=== PATIENT | male | born 1970 | race Caucasian/White ===

== ENCOUNTER 2018-03-12 10:18 | Inpatient (IN) | payer OTHER ==
[~2018-03-12] VITALS: Ht 172.7 cm; Wt 103.5 kg
[2018-03-12] MEDS: PANTOPRAZOLE 40MG TAB (PROTONIX) PO SCH (09:00)
[2018-03-12 10:52] LABS: VENOUS BASE EXCESS 0.9 (-2.0-2.0); VENOUS HCO3 29.3 MEQ/L (23.0-27.0); VENOUS PARTIAL PRESSURE O2 31.4 mmHg (30.0-50.0); VENOUS PH 7.299 UNITS (7.330-7.430); VENOUS STANDARD HCO3 23.8 MEQ/L; VENOUS TOTAL CO2 31.1 MEQ/L (24.0-28.0)
[2018-03-12 10:58] LABS: BASO # 0.1 10^3/uL (0.0-0.2); BASO % 0.6 % (0.0-1.0); EOS # 0.3 10^3/uL (0.0-0.50); EOS % 2.5 % (0.0-3.0); HEMATOCRIT 50.5 % (42.0-52.0); HEMOGLOBIN 16.7 g/dl (13.5-17.5); LYMPH # 2.9 10^3/uL (1.5-4.5); LYMPH % 23.3 % (24.0-44.0); MEAN CORPUSCULAR HEMOGLOBIN 32.1 pg (27.0-33.0); MEAN CORPUSCULAR HGB CONC 33.1 g/dl (32.0-36.5); MEAN CORPUSCULAR VOLUME 96.9 fl (80.0-96.0); MONO # 0.7 10^3/uL (0.0-0.8); MONO % 5.2 % (0.0-5.0); NEUTROPHILS # 8.6 10^3/uL (1.8-7.7); NEUTROPHILS % 67.8 % (36.0-66.0); PLATELET COUNT, AUTOMATED 236 10^3/uL (150-450); RED BLOOD COUNT 5.21 10^6/uL (4.30-6.10); WHITE BLOOD COUNT 12.6 10^3/uL (4.0-10.0)
[2018-03-12] MEDS ORDERED: FUROSEMIDE 40 MG/4 ML VIAL (J1940) IV ONE (11:00)
[2018-03-12] MEDS ORDERED: methylPREDNISolone INJ 40 MG/1 ML VIAL (J2920) IV ONE (11:00)
[2018-03-12] MEDS ORDERED: ALBUTEROL SULFATE 2.5 MG/0.5 ML INH NEB SOLN INH ONE (11:00)
[2018-03-12] MEDS ORDERED: IPRATROPIUM 0.5MG/ALBUTEROL 2.5MG INH SOL UD 3ML (DUONEB)(J7620) NEB ONE (11:00)
--- NOTE | 2018-03-12 11:03 | REP ---
Clinical: Cough and dyspnea . Comparison: 06/12/2008 . Findings: The mediastinum and cardiac silhouette are stable and within normal limits for portable technique. The lung mcgill are clear without acute consolidation, effusion, or pneumothorax. Skeletal structures are intact. Impression: No focal consolidation. Coarsened interstitial markings may reflect bronchitis. Electronically Signed by Eric Valencia MD 03/12/2018 10:55 A
[2018-03-12 11:22] LABS: ABG BASE EXCESS 3.8 (-2.0-2.0); ABG HCO3 26.9 MEQ/L (22.0-26.0); ABG O2 SATURATION 94.2 % (95.0-99.0); ABG PARTIAL PRESSURE O2 68.6 mmHg (75.0-100.0); ABG STANDARD HCO3 27.7 MEQ/L (22.0-26.0); ABG pH (ARTERIAL) 7.491 UNITS (7.350-7.450)
[2018-03-12] MEDS ORDERED: LABETALOL HCL 100 MG/20 ML VIAL IV STA (11:41)
[2018-03-12 12:40] LABS: ALBUMIN 3.6 GM/DL (3.2-5.2); ALT/SGPT 54 U/L (12-78); BILIRUBIN,DIRECT 0.2 MG/DL (0.0-0.2); BILIRUBIN,TOTAL 0.8 MG/DL (0.2-1.0); BLOOD UREA NITROGEN 8 MG/DL (7-18); CALCIUM LEVEL 8.9 MG/DL (8.5-10.1); CARBON DIOXIDE LEVEL 28 MEQ/L (21-32); CHLORIDE LEVEL 102 MEQ/L (98-107); CPK CREATINE PHOSPHOKINASE 107 U/L (39-308); CREATININE FOR GFR 0.93 MG/DL (0.70-1.30); GLOMERULAR FILTRATION RATE > 60.0 (>60); GLUCOSE, FASTING 132 MG/DL (70-100); MB/CK RELATIVE INDEX 3.18 (< OR =4); NT-PRO BNP 1934 PG/ML (<125); POTASSIUM SERUM 4.8 MEQ/L (3.5-5.1); SODIUM LEVEL 141 MEQ/L (136-145); THYROXINE (T4) 10.5 UG/DL (4.5-12.0); TOTAL PROTEIN 7.7 GM/DL (6.4-8.2); TROPONIN I 0.04 NG/ML (< 0.10)
[2018-03-12 12:51] LABS: INFLUENZA A AMPLIFICATION NEGATIVE (NEGATIVE); INFLUENZA B AMPLIFICATION NEGATIVE (NEGATIVE)
[2018-03-12] MEDS ORDERED: LABETALOL 200 MG TAB PO ONE (13:00)
--- NOTE | 2018-03-12 13:38 | HPEPDOC ---
[facility] Medical History & Physical Date of Admission Mar 12, 2018 Attending Physician: FERNY KELLER MD History and Physical CHIEF COMPLAINT: Shortness of breath 3 day HISTORY OF PRESENT ILLNESS: Patient is a 47-year-old man with poorly controlled hypertension was formerly a patient of Dr. Edwardo Baer but was lost to follow- up. He also reports self discontinuation of his blood pressure medications over the past 3 years. He says he was in his usual state of health but has since found it difficult to catch his breath for the past 3 days his symptoms worsened today, necessitating his seeking further medical attention. He denies any palpitations, chest pain. He does give chronic occasional cough which she attributes to smoker's cough patient is a current smoker, a pack a day of cigarettes for the past 20 years. He denies nausea, vomiting, chills or fevers. He denies any change in his bowel or urinary habits. He denies any night sweats. No recent weight loss. No recent long distance travel. No recent lower extremity swellings. Patient was evaluated in the emergency room with a systolic blood pressure of 240 and diastolic of 120, respiratory rate was 20s chest x-ray with encephalization, which is in keeping with pulmonary edema. Patient's symptoms improved after IV Lasix was given. Hospitalist was called in to evaluate patient and the possibility of admission. PAST MEDICAL HISTORY: 1. Hypertension. PAST SURGICAL HISTORY: None. SOCIAL HISTORY: Current smoker, a pack a day for the past 20 years. Occasional use of alcohol, denies illicit drug use. 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 FAMILY HISTORY: Patient is adopted ALLERGIES: Please see below. REVIEW OF SYSTEMS: 12 point review of systems negative other than that described in the body of HPI. HOME MEDICATIONS: Please see below. PHYSICAL EXAMINATION: GENERAL APPEARANCE: Middle aged man, lying calmly in bed, not in any apparent distress. He is not pale, anicteric and afebrile HEENT: Atraumatic. Neck: Supple. LUNGS: soft basal crackles on auscultation bilaterally. CARDIOVASCULAR: S1 and 2 heard, no murmurs, rubs or gallops. ABDOMEN: Obese, soft, not tender, not distended. Bowel sounds normoactive. MUSCULOSKELETAL: Apparently within normal limits EXTREMITIES: No pedal edema, 2+ bilateral pedal pulses noted. NEUROLOGICAL: Awake, alert, oriented 3. PSYCHIATRIC: Normal affect LABORATORY DATA: See below. IMAGING: Chest x-ray: Reported as chronic changes but might take encephalization that is consistent with pulmonary edema. MICROBIOLOGY: Please see below. ASSESSMENT: 47 M with poorly controlled BP, off meds for 3 years (non compliant). c/o SOB which responded to Lasix and not to nebs. CXR with arguable encephalization consistent with pulmonary edema. Pt with no PCP. DIAGNOSES: 1. Hypertensive emergency. 2. Noncompliant with medications. 3. Noncompliant with treatment . PLAN: 1. We will admit patient to medical floor with remote telemetry under care of Dr. Fortune. 2. Hypertensive emergency: Labetalol 200 mg every 6 hours by mouth, hydralazine 10 mg every 4 hours IV, hold if systolic BP is less than 150. Patient will get 1 more shot of Lasix 40 mg in the morning tomorrow. Patient will have echocardiogram with this admission. 3. Noncompliant with medication and treatment. Extensive time spent on counseling patient on being compliant with both medication and treatment. 4. Current smoker. Patient counseled extensively on cessation of smoking for more than 10 minutes. We will order nicotine patch. 5. DVT prophylaxis, TEDs. 6. GI prophylaxis not indicated at this time. 7. Further management to be per patient's clinical course. Vital Signs Vital Signs Date Time Temp Pulse Resp B/P (MAP) Pulse Ox O2 Delivery O2 Flow Rate FiO2 03/12/18 13:08 95 174/103 03/12/18 11:30 93 03/12/18 10:18 95.2 18 Room Air Laboratory Data Labs 24H Laboratory Tests 2 03/12/18 10:45: Immature Granulocyte % (Auto) 0.6, White Blood Count 12.6H, Red Blood Count 5.21, Hemoglobin 16.7, Hematocrit 50.5, Mean Corpuscular Volume 96.9H, Mean Corpuscular Hemoglobin 32.1, Mean Corpuscular Hemoglobin Concent 33.1, Red Cell Distribution Width 13.0, Platelet Count 236, Neutrophils (%) (Auto) 67.8H, Lymphocytes (%) (Auto) 23.3L, Monocytes (%) (Auto) 5.2H, Eosinophils (%) (Auto) 2.5, Basophils (%) (Auto) 0.6, Neutrophils # (Auto) 8.6H, Lymphocytes # (Auto) 2.9, Monocytes # (Auto) 0.7, Eosinophils # (Auto) 0.3, Basophils # (Auto) 0.1, Nucleated Red Blood Cells % (auto) 0.0, Blood Gas Bicarbonate Standard 23.8, Venous Blood pH 7.299L, Venous Blood Partial Pressure CO2 61.0H, Venous Blood Partial Pressure O2 31.4, Venous Blood Total Carbon Dioxide 31.1H, Venous Blood HCO3 29.3H, Venous Blood Oxygen Saturation 51.0L, Venous Blood Base Excess 0.9, Lactic Acid Level 3.1*H 03/12/18 11:05: Influenza Type A (RT-PCR) NEGATIVE, Influenza Type B (RT-PCR) NEGATIVE 03/12/18 11:18: Blood Gas Bicarbonate Standard 27.7H, Arterial Blood pH 7.491H, Arterial Blood Partial Pressure CO2 36.0, Arterial Blood Partial Pressure O2 68.6L, Arterial Blood Total CO2 28.0, Arterial Blood HCO3 26.9H, Arterial Blood Base Excess 3.8H, Arterial Blood Oxygen Saturation 94.2L 03/12/18 11:46: Anion Gap 11, Glomerular Filtration Rate > 60.0, Calcium Level 8.9, Aspartate Amino Transf (AST/SGOT) 41H, Alanine Aminotransferase (ALT/SGPT) 54, Alkaline Phosphatase 91, Total Bilirubin 0.8, Direct Bilirubin 0.2, Total Creatine Kinase 107, Creatine Kinase MB 3.0, Creatine Kinase MB Relative Index 3.18, Troponin I 0.04, MT-Psh-R-Type Natriuretic Peptide 1934H, Total Protein 7.7, Albumin 3.6, Albumin/Globulin Ratio 0.88L, Thyroid Stimulating Hormone (TSH) 1.620, Thyroxine (T4) 10.5 CBC/BMP Laboratory Tests 03/12/18 10:45 Red Blood Count 5.21, Mean Corpuscular Volume 96.9 H, Mean Corpuscular Hemoglobin 32.1, Mean Corpuscular Hemoglobin Concent 33.1, Red Cell Distribution Width 13.0, Neutrophils (%) (Auto) 67.8 H, Lymphocytes (%) (Auto) 23.3 L, Monocytes (%) (Auto) 5.2 H, Eosinophils (%) (Auto) 2.5, Basophils (%) (Auto) 0.6, Neutrophils # (Auto) 8.6 H, Lymphocytes # (Auto) 2.9, Monocytes # (Auto) 0.7, Eosinophils # (Auto) 0.3, Basophils # (Auto) 0.1 03/12/18 11:46 Microbiology Microbiology 03/12/18 Blood Culture, Received Pending 03/12/18 Blood Culture, Received Pending Home Medications No Active Prescriptions or Reported Meds Allergies Coded Allergies: No Known Allergies (Unverified , 03/12/18) FERNY KELLER MD Mar 12, 2018 13:38
[2018-03-12] MEDS: hydrALAZINE INJ 20 MG/ML VIAL IV SCH ×3 (14:43→21:56)
[2018-03-12] MEDS: NICOTINE 21MG/24HR 1 EA TRANSDERMAL TD SCH (15:00)
[2018-03-12] MEDS: LABETALOL 200 MG TAB PO SCH ×2 (17:10→20:59)
[2018-03-12 17:24] VITALS: BP 172/100
[2018-03-12 18:39] VITALS: BP 162/72
--- NOTE | 2018-03-12 19:30 | ECGEPIP ---
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
[2018-03-12 20:00] VITALS: BP 142/80
[2018-03-13] VITALS (9 sets, daily range): BP systolic 133–173; BP diastolic 62–90
[2018-03-13] MEDS: LevoFLOXacin IV 750 MG in APPROPRIATE DILUENT 1 EA IV SCH (00:04)
[2018-03-13] MEDS: ACETAMINOPHEN TAB 650MG DOSE (2X325MG) PO PRN (00:04)
[2018-03-13] MEDS: NS 1,000 ML IV SCH ×3 (00:04→18:25)
[2018-03-13] MEDS: IPRATROPIUM 0.5MG/ALBUTEROL 2.5MG INH SOL UD 3ML (DUONEB)(J7620) NEB PRN (00:18)
[2018-03-13] MEDS: hydrALAZINE INJ 20 MG/ML VIAL IV SCH ×6 (01:46→21:13)
[2018-03-13 06:11] LABS: BLOOD UREA NITROGEN 19 MG/DL (7-18); CALCIUM LEVEL 8.3 MG/DL (8.5-10.1); CARBON DIOXIDE LEVEL 25 MEQ/L (21-32); CHLORIDE LEVEL 102 MEQ/L (98-107); CREATININE FOR GFR 0.91 MG/DL (0.70-1.30); GLOMERULAR FILTRATION RATE > 60.0 (>60); GLUCOSE, FASTING 121 MG/DL (70-100); SODIUM LEVEL 137 MEQ/L (136-145)
[2018-03-13] MEDS: IPRATROPIUM 0.5MG/ALBUTEROL 2.5MG INH SOL UD 3ML (DUONEB)(J7620) NEB SCH ×3 (07:17→15:33)
[2018-03-13 07:38] LABS: BASO # 0.1 10^3/uL (0.0-0.2); BASO % 0.2 % (0.0-1.0); HEMATOCRIT 42.3 % (42.0-52.0); HEMOGLOBIN 14.1 g/dl (13.5-17.5); LYMPH # 2.5 10^3/uL (1.5-4.5); LYMPH % 12.3 % (24.0-44.0); MEAN CORPUSCULAR HEMOGLOBIN 32.1 pg (27.0-33.0); MEAN CORPUSCULAR HGB CONC 33.3 g/dl (32.0-36.5); MEAN CORPUSCULAR VOLUME 96.4 fl (80.0-96.0); MONO # 0.8 10^3/uL (0.0-0.8); MONO % 4.1 % (0.0-5.0); NEUTROPHILS # 16.9 10^3/uL (1.8-7.7); NEUTROPHILS % 82.7 % (36.0-66.0); PLATELET COUNT, AUTOMATED 240 10^3/uL (150-450); RED BLOOD COUNT 4.39 10^6/uL (4.30-6.10); WHITE BLOOD COUNT 20.5 10^3/uL (4.0-10.0)
[2018-03-13 07:45] LABS: ALBUMIN 2.9 GM/DL (3.2-5.2); ALT/SGPT 36 U/L (12-78); BILIRUBIN,TOTAL 0.5 MG/DL (0.2-1.0); MAGNESIUM LEVEL 1.7 MG/DL (1.8-2.4); TOTAL PROTEIN 6.5 GM/DL (6.4-8.2); TROPONIN I 0.03 NG/ML (< 0.10)
[2018-03-13] MEDS ORDERED: FUROSEMIDE 40 MG TAB PO ONE (08:00)
[2018-03-13] MEDS: LABETALOL 200 MG TAB PO SCH ×2 (08:23→13:02)
[2018-03-13] MEDS: PANTOPRAZOLE 40MG TAB (PROTONIX) PO SCH (08:23)
[2018-03-13] MEDS: NICOTINE 21MG/24HR 1 EA TRANSDERMAL TD SCH (08:24)
[2018-03-13] MEDS ORDERED: INFLUENZA QUADRIVALENT PF VACCINE 0.5ML SYRINGE (90686) IM ONE (09:00)
[2018-03-13] MEDS ORDERED: CHLORTHALIDONE 12.5MG PER 1/2 TABLET PO SCH (09:00)
--- NOTE | 2018-03-13 09:24 | IPNPDOC ---
Text Note Date of Service The patient was seen on 03/13/18. NOTE Subjective: Patient is a 47-year-old male with a PMHx of HTN (non-compliant with medications) who presented to the ER with complaints of shortness of breath. In the emergency room, patient had imaging completed that showed findings suggestive of bronchitis. Patient was admitted to the hospital service for hypertensive urgency. Patient was seen and examined at the bedside. Patient was resting comfortably in bed, denies any difficulty breathing, denied any chest pain, denying abdominal pain. Objective: Vitals (See below) General: Lying in bed, no acute distress, comfortable, AAOx3 HEENT: NC, AT CVS: RRR, +S1S2 Lungs: Fair air entry b/l, -w/r/r Abdomen: Soft, ND, NT Extremities: - Edema, - Calf tenderness Echo: CONCLUSIONS: 1. Study is of rather limited technical quality. 2. Normal LV size with mild LVH and hyperdynamic LV systolic function. Probably normal diastolic function. 3. Sclerotic aortic valve with minimal stenosis and mild insufficiency. 4. No significant mitral and tricuspid valvular disease. 5. Elevated central venous pressure. 6. Unable to estimate pulmonary artery pressure. CT chest 03/13/18: 1. Axillary, hilar, and mediastinal adenopathy consistent with lymphoma requires followup. 2. Small focal areas of atelectasis involving the right middle lobe and bilateral lower lobes with small posterior pleural reactions Assessment and plan: Hypertensive urgency - 2/2 non-compliance with medications - Patient complains of shortness of breath, denies chest pain, palpitations, headache or visual problems - Patient blood pressure remains better controlled this morning - ECHO results above - EKG 03/12: No ischemic changes - c/w Telemetry monitoring - c/w Hydralazine IV - Will change Labetalol to Carvedilol SOB - possibly 2/2 Bronchitis - Patient in reporting shortness of breath with some cough - Physical without any adventitious lung sounds - Leukocytosis noted on admission; with lactic acidosis - CXR 03/13: No focal consolidation. Coarsened interstitial markings may reflect bronchitis. - c/w Levaquin (Day #2) Possible lymphoma as seen with axillary, hilar, mediastinal adenopathy --Consulted surgeon, Dr. Pineda for possible axillary a biopsy. Leukocytosis - possibly 2/2 corticosteroids, possibly 2/2 infectious etiology - See above Lactic acidosis - possibly 2/2 above - Will continue to follow - c/w IV fluids Nicotine use - c/w nicotine patch GERD - c/w Protonix DVT prophylaxis - c/w SCDs - Will start Heparin Disposition: - Patient will need a new PCP VS,Fishbone, I+O VS, Fishbone, I+O Laboratory Tests 03/12/18 10:45 Red Blood Count 5.21, Mean Corpuscular Volume 96.9 H, Mean Corpuscular Hemoglobin 32.1, Mean Corpuscular Hemoglobin Concent 33.1, Red Cell Distribution Width 13.0, Neutrophils (%) (Auto) 67.8 H, Lymphocytes (%) (Auto) 23.3 L, Monocytes (%) (Auto) 5.2 H, Eosinophils (%) (Auto) 2.5, Basophils (%) (Auto) 0.6, Neutrophils # (Auto) 8.6 H, Lymphocytes # (Auto) 2.9, Monocytes # (Auto) 0.7, Eosinophils # (Auto) 0.3, Basophils # (Auto) 0.1 03/12/18 11:46 03/13/18 05:02 Red Blood Count 4.39, Mean Corpuscular Volume 96.4 H, Mean Corpuscular Hemoglobin 32.1, Mean Corpuscular Hemoglobin Concent 33.3, Red Cell Distribution Width 13.3, Neutrophils (%) (Auto) 82.7 H, Lymphocytes (%) (Auto) 12.3 L, Monocytes (%) (Auto) 4.1, Eosinophils (%) (Auto) 0.0, Basophils (%) (Auto) 0.2, Neutrophils # (Auto) 16.9 H, Lymphocytes # (Auto) 2.5, Monocytes # (Auto) 0.8, Eosinophils # (Auto) 0.0, Basophils # (Auto) 0.1 03/13/18 05:06 Calcium Level 8.3 L, Aspartate Amino Transf (AST/SGOT) 17, Alanine Aminotransferase (ALT/SGPT) 36, Alkaline Phosphatase 63, Total Bilirubin 0.5, Total Protein 6.5, Albumin 2.9 L Vital Signs Date Time Temp Pulse Resp B/P (MAP) Pulse Ox O2 Delivery O2 Flow Rate FiO2 03/13/18 08:23 95 162/78 03/13/18 08:00 98.6 18 96 Room Air I&O- Last 24 Hours up to 6 AM 03/13/18 05:59 Intake Total 1410 ml Output Total 250 ml Balance 1160 ml GME ATTESTATION GME ATTESTATION My faculty preceptor for this patient encounter was physically present during the encounter and was fully available. All aspects of the patient interview, examination, medical decision making process, and medical care plan development were reviewed and approved by the faculty preceptor. The faculty preceptor is aware and concurs with the plan as stated in the body of this note and will attest to such by his/her cosignature. ATTENDING NOTE I, Kourtney Hill, have both independently examined this patient as well as reviewed the documentation. I have discussed in detail with the resident the findings and plan of treatment as documented in the residents documentation. I will continue to follow the patient and offer further guidance to the patients care as necessary during this hospital stay. ALISIA COLES DO Mar 13, 2018 08:51 KOURTNEY HILL MD Mar 13, 2018 14:40
[2018-03-13] MEDS: HEPARIN SOD (PORCINE) 5000 UNITS/ML VIAL SQ SCH ×2 (14:44→21:13)
--- NOTE | 2018-03-13 14:55 | ECHO ---
DATE OF PROCEDURE: 03/13/2018 DIAGNOSIS: HTN, ventricular tachycardia Height 173 cm Weight 102 kg Dimensions: IVS 1.3 LV 4.9 LVPW: 1.4 LA 4.8 Aorta 3.2 IVC 2.4 Mitral E wave velocity 120, A-wave 34 E prime septal 9.5, E prime lateral 9.0 FINDINGS: The study is of fair technical quality with fairly difficult visualization. Left ventricle is normal size. There is mild left ventricular hypertrophy and hyperdynamic LV systolic function, I estimate LVEF 65-70%. Right ventricle appears normal size and systolic function. Left atrium is at least moderately enlarged. The right atrium was poorly visualized. There are sclerotic abnormalities of aortic valve. The valve itself was poorly visualized but there does not appear to be any significant restriction of mobility. Mitral and tricuspid valves appear normal. Pulmonic valve was not well seen. No pericardial effusion is noted. Inferior vena cava is dilated and there is no appreciable collapse with respiration indicative of likely significantly elevated central venous pressure. Aortic root is normal. Aortic arch was not seen. Abdominal aorta appears normal. Doppler interrogation of aortic valve reveals mild insufficiency and trivial stenosis with mean gradient 11 mmHg. There is no significant mitral and tricuspid valvular disease. Mitral inflow pattern and tissue Doppler imaging of mitral annulus reveal probably normal diastolic function even though the left atrium appears enlarged. CONCLUSIONS: 1. Study is of rather limited technical quality. 2. Normal LV size with mild LVH and hyperdynamic LV systolic function. Probably normal diastolic function. 3. Sclerotic aortic valve with minimal stenosis and mild insufficiency. 4. No significant mitral and tricuspid valvular disease. 5. Elevated central venous pressure. 6. Unable to estimate pulmonary artery pressure. COMMENT: Subacute bacterial endocarditis (SBE) prophylaxis is not recommended. Study is suggestive of hypertensive heart disease. MTDD
--- NOTE | 2018-03-13 15:43 | REP ---
Clinical: Shortness of breath. Fluid overload. Technique: Axial noncontrast images from the thoracic inlet to the upper abdomen with coronal and sagittal re-formations. Findings: Small focal areas of atelectasis involving the right middle lobe and bilateral lower lobes with small pleural reactions are identified. No pneumothorax. Tracheobronchial tree is patent. Marked bilateral axillary, mediastinal and hilar adenopathy is appreciated with lymph nodes measuring up to approximately 2.6 cm diameter. Findings are concerning for lymphoma and require follow-up. Thoracic aorta, pulmonary vasculature and heart/pericardium appear normal. Musculoskeletal structures are intact. Limited evaluation of the upper abdomen demonstrates normal bilateral adrenal glands without evidence for splenomegaly or significant obvious adenopathy. Impression: 1. Axillary, hilar, and mediastinal adenopathy consistent with lymphoma requires followup. 2. Small focal areas of atelectasis involving the right middle lobe and bilateral lower lobes with small posterior pleural reactions. Electronically Signed by Eric Valencia MD 03/13/2018 03:34 P
[2018-03-13] MEDS: CARVedilol 12.5 MG TAB PO SCH (21:14)
[2018-03-14] MEDS: LevoFLOXacin IV 750 MG in APPROPRIATE DILUENT 1 EA IV SCH ×2 (00:47→23:35)
[2018-03-14 01:25] LABS: BLOOD UREA NITROGEN 19 MG/DL (7-18); CALCIUM LEVEL 8.2 MG/DL (8.5-10.1); CARBON DIOXIDE LEVEL 24 MEQ/L (21-32); CHLORIDE LEVEL 105 MEQ/L (98-107); CREATININE FOR GFR 0.89 MG/DL (0.70-1.30); GLOMERULAR FILTRATION RATE > 60.0 (>60); GLUCOSE, FASTING 148 MG/DL (70-100); MAGNESIUM LEVEL 1.8 MG/DL (1.8-2.4); POTASSIUM SERUM 3.7 MEQ/L (3.5-5.1); SODIUM LEVEL 137 MEQ/L (136-145); TROPONIN I 0.06 NG/ML (< 0.10)
[2018-03-14] MEDS: hydrALAZINE INJ 20 MG/ML VIAL IV SCH ×3 (02:15→09:51)
[2018-03-14] MEDS: ACETAMINOPHEN TAB 650MG DOSE (2X325MG) PO PRN (02:16)
[2018-03-14] MEDS ORDERED: SLF 3 ML SYR IV PRN (03:30)
[2018-03-14 03:31] LABS: BASO # 0.1 10^3/uL (0.0-0.2); BASO % 0.5 % (0.0-1.0); EOS # 0.3 10^3/uL (0.0-0.50); EOS % 1.5 % (0.0-3.0); HEMATOCRIT 41.1 % (42.0-52.0); HEMOGLOBIN 13.5 g/dl (13.5-17.5); LYMPH # 3.9 10^3/uL (1.5-4.5); LYMPH % 23.9 % (24.0-44.0); MEAN CORPUSCULAR HEMOGLOBIN 31.7 pg (27.0-33.0); MEAN CORPUSCULAR HGB CONC 32.8 g/dl (32.0-36.5); MEAN CORPUSCULAR VOLUME 96.5 fl (80.0-96.0); MONO % 5.9 % (0.0-5.0); NEUTROPHILS % 67.6 % (36.0-66.0); PLATELET COUNT, AUTOMATED 202 10^3/uL (150-450); RED BLOOD COUNT 4.26 10^6/uL (4.30-6.10); WHITE BLOOD COUNT 16.2 10^3/uL (4.0-10.0)
[2018-03-14 03:54] LABS: ALBUMIN 2.7 GM/DL (3.2-5.2); ALT/SGPT 33 U/L (12-78); BILIRUBIN,TOTAL 0.3 MG/DL (0.2-1.0); BLOOD UREA NITROGEN 17 MG/DL (7-18); CARBON DIOXIDE LEVEL 25 MEQ/L (21-32); CHLORIDE LEVEL 104 MEQ/L (98-107); CPK CREATINE PHOSPHOKINASE 48 U/L (39-308); CREATININE FOR GFR 0.84 MG/DL (0.70-1.30); GLOMERULAR FILTRATION RATE > 60.0 (>60); GLUCOSE, FASTING 110 MG/DL (70-100); MAGNESIUM LEVEL 1.8 MG/DL (1.8-2.4); MB/CK RELATIVE INDEX 3.75 (< OR =4); POTASSIUM SERUM 3.8 MEQ/L (3.5-5.1); SODIUM LEVEL 137 MEQ/L (136-145); TOTAL PROTEIN 5.9 GM/DL (6.4-8.2); TROPONIN I 0.06 NG/ML (< 0.10)
[2018-03-14 04:00] VITALS: BP 140/88
[2018-03-14] MEDS: HEPARIN SOD (PORCINE) 5000 UNITS/ML VIAL SQ SCH ×3 (05:17→20:55)
[2018-03-14] MEDS: SLF 3 ML SYR IV SCH ×3 (05:18→20:55)
--- NOTE | 2018-03-14 07:59 | IPNPDOC ---
Text Note Date of Service The patient was seen on 03/14/18. NOTE Subjective: Patient is a 47-year-old male with a PMHx of HTN (non-compliant with medications) who presented to the ER with complaints of shortness of breath. In the emergency room, patient had imaging completed that showed findings suggestive of bronchitis. Patient was admitted to the hospital service for hypertensive urgency. Patient was examined in bed today. He had no acute finding. He continues to have elevated BP reading. He denies headache, vision changes, and chest pain. Objective: Vitals (See below) General: Lying in bed, no acute distress, comfortable, AAOx3 HEENT: NC, AT CVS: RRR, +S1S2, no murmurs or rubs Lungs: Fair air entry b/l, auscultation without any wheezing, rales or rhonchi Abdomen: Soft, no evidence of distention or tenderness Extremities: No evidence of lower extremity edema, - Calf tenderness Assessment and plan: Hypertensive urgency - 2/2 non-compliance with medications - Clinically patient has no new complaints; Negative CP/SOB/Palpitations - Patient blood pressure remains better controlled this morning - ECHO 03/13: Normal EF, no evidence of diastolic dysfunction, elevation in CVP - EKG 03/12: No ischemic changes - c/w Telemetry monitoring - Will DC Hydralazine IV; s/p Labetalol - c/w Carvedilol - Will add Amlodipine SOB - possibly 2/2 Bronchitis - Patient reports some cough, non productive, denies shortness of breath - Physical without any adventitious lung sounds - Leukocytosis noted on admission; with lactic acidosis - CXR 03/13: No focal consolidation. Coarsened interstitial markings may reflect bronchitis. - c/w Levaquin (Day #3) Possible lymphoma based on imaging - Patient remains asymptomatic - He is unsure of a family history as he was adopted - Possible right axially lymphadenopathy on palpation noted - CT chest 03/13: Axillary, hilar, and mediastinal adenopathy consistent with lymphoma requires followup. Small focal areas of atelectasis involving the right middle lobe and bilateral lower lobes with small posterior pleural reactions - Consulted Surgery (Dr. Pineda); will consider possible biopsy; will attempt ultrasound tomorrow for evaluation of lymphadenopathy Leukocytosis - possibly 2/2 corticosteroids, possibly 2/2 infectious etiology - Improving - See above Lactic acidosis - possibly 2/2 above; or possibly 2/2 beta-agonist therapy - Will continue to follow - c/w IV fluids Nicotine use - c/w nicotine patch GERD - c/w Protonix DVT prophylaxis - c/w Heparin VS,Fishbone, I+O VS, Fishbone, I+O Laboratory Tests 03/14/18 00:37 Calcium Level 8.2 L 03/14/18 03:10 Calcium Level 8.0 L, Red Blood Count 4.26 L, Mean Corpuscular Volume 96.5 H, Mean Corpuscular Hemoglobin 31.7, Mean Corpuscular Hemoglobin Concent 32.8, Red Cell Distribution Width 13.6, Neutrophils (%) (Auto) 67.6 H, Lymphocytes (%) (Auto) 23.9 L, Monocytes (%) (Auto) 5.9 H, Eosinophils (%) (Auto) 1.5, Basophils (%) (Auto) 0.5, Neutrophils # (Auto) 11.0 H, Lymphocytes # (Auto) 3.9, Monocytes # (Auto) 1.0 H, Eosinophils # (Auto) 0.3, Basophils # (Auto) 0.1, Aspartate Amino Transf (AST/SGOT) 24, Alanine Aminotransferase (ALT/SGPT) 33, Total Creatine Kinase 48, Alkaline Phosphatase 52, Total Bilirubin 0.3, Total Protein 5.9 L, Albumin 2.7 L Vital Signs Date Time Temp Pulse Resp B/P (MAP) Pulse Ox O2 Delivery O2 Flow Rate FiO2 03/14/18 05:17 160/90 03/14/18 04:00 98.5 86 20 97 Room Air I&O- Last 24 Hours up to 6 AM 03/14/18 05:59 Intake Total 1770 ml Output Total 0 ml Balance 1770 ml GME ATTESTATION GME ATTESTATION My faculty preceptor for this patient encounter was physically present during the encounter and was fully available. All aspects of the patient interview, examination, medical decision making process, and medical care plan development were reviewed and approved by the faculty preceptor. The faculty preceptor is aware and concurs with the plan as stated in the body of this note and will attest to such by his/her cosignature. ATTENDING NOTE I, Kourtney Hill, have both independently examined this patient as well as reviewed the documentation. I have discussed in detail with the resident the fi ndings and plan of treatment as documented in the residents documentation. I will continue to follow the patient and offer further guidance to the patients care as necessary during this hospital stay. ALISIA COLES DO Mar 14, 2018 07:59 KOURTNEY HILL MD Mar 14, 2018 10:53
[2018-03-14 08:00] VITALS: BP 146/86
[2018-03-14] MEDS: CARVedilol 12.5 MG TAB PO SCH ×2 (08:19→20:55)
[2018-03-14] MEDS: PANTOPRAZOLE 40MG TAB (PROTONIX) PO SCH (08:19)
[2018-03-14] MEDS: NICOTINE 21MG/24HR 1 EA TRANSDERMAL TD SCH (08:19)
[2018-03-14] MEDS: IPRATROPIUM 0.5MG/ALBUTEROL 2.5MG INH SOL UD 3ML (DUONEB)(J7620) NEB PRN (08:27)
--- NOTE | 2018-03-14 10:38 | CR ---
DATE OF CONSULTATION: 03/13/2018 REASON FOR CONSULTATION: Axillary node biopsy for possible lymph node/lymphoma. BRIEF HISTORY OF PRESENT ILLNESS: The patient is a 47-year-old male who presents with some shortness of breath and some evidence of bronchitis. He is being admitted for current treatment for his bronchitis as well as hypertension issues that are uncontrolled at this time. He has had this shortness of breath that has been quite problematic over the last 3 days. He has not complained of any palpitations or chest pain, but he does have a chronic cough that is been problematic for him. He presented in the emergency room with a systolic blood pressure of 240. And was started on some Lasix. During his workup he was found to have multiple lymph nodes in his chest and some and his axilla. And the concern was for possible lymphoma and I was asked to see him for possible biopsy. His laboratory exam revealed an elevated white count of 20,000 today, however, he has been afebrile. PAST MEDICAL HISTORY: Is significant for history of hypertension, history of smoking. PHYSICAL EXAM: Reveals a obese 47-year-old male who looks older than stated age. HEENT is unremarkable. Neck supple without adenopathy. Unfortunately he has got such a short neck and a relatively thick neck I cannot reliably feel any significant adenopathy although when I look in his CT scan of his chest I think I can see some lymph nodes that are extending up to level of the clavicle which implies that he probably has some supraclavicular adenopathy but there is nothing that sticks out at this point easily for me to palpate or to appreciate on his physical exam. His lungs reveal some wheezes and a few rhonchi. Abdomen is soft, nondistended. Morbidly obese. His axilla and his groin I am not reliably identifying any significant adenopathy. Although I can appreciate this on the CAT scan bilaterally there are some lymph nodes visualized relatively noticeable and easy left side more noticeable than the right side. IMPRESSION AND PLAN: The patient has n enlarged lymph nodes of undetermined etiology. At this point my recommendation is to proceed with an ultrasound-guided aspiration/biopsy of these lymph nodes and I would recommend proceeding with this on Tuesday if the patient is still in the hospital. However, if he is discharged to home he can have this performed as an outpatient. Once again from my standpoint the procedure would be best for numerous reasons #1 One of which is identifiable lesions can be more easily identified with the ultrasound especially in this obese individual and #2 with his respiratory complaints we can avoid the sedation associated with operative intervention.
[2018-03-14] MEDS ORDERED: amLODIPine 5 MG TAB PO ONE (11:15)
[2018-03-14 12:00] VITALS: BP 168/110
[2018-03-14 16:00] VITALS: BP 140/98
[2018-03-14 20:00] VITALS: BP 144/86
--- NOTE | 2018-03-14 21:12 | ECGEPIP ---
Stationary ECG Study [facility] Test Date: 2018-03-14 Pat Name: GISELE LANGE Department: Room: [place] [address] Gender: M Log Chipper: WILFRED : 1970 Requested By: PATY WILDER Order Number: [id number] Reading MD: Latonya Ortiz Measurements Intervals [place] Rate: 84 P: 53 [place]: 155 QRS: 60 QRSD: 92 T: 114 QT: 351 QTc: 417 Interpretive Statements SINUS RHYTHM Left atrial enlargement BORDERLINE VOLT LIMB LEADS MODERATE T-WAVE ABNORMALITY, CONSIDER LATERAL ISCHEMIA NEW C/W 03/12/18 NEW RATE SLOWER ECTOPY ABSENT C/W 03/12/18 ALSO MILD NSSTTWA INFERIOR LEADS NEW Electronically Signed On 03-14-2018 21:12:07 EST by Latonya Ortiz
[2018-03-15] VITALS: BP 150/88
[2018-03-15 04:00] VITALS: BP 127/77
[2018-03-15 05:48] LABS: BASO # 0.1 10^3/uL (0.0-0.2); BASO % 0.6 % (0.0-1.0); EOS # 0.3 10^3/uL (0.0-0.50); EOS % 3.3 % (0.0-3.0); HEMATOCRIT 40.5 % (42.0-52.0); HEMOGLOBIN 13.4 g/dl (13.5-17.5); LYMPH # 2.9 10^3/uL (1.5-4.5); LYMPH % 27.8 % (24.0-44.0); MEAN CORPUSCULAR HEMOGLOBIN 31.8 pg (27.0-33.0); MEAN CORPUSCULAR HGB CONC 33.1 g/dl (32.0-36.5); MONO # 0.8 10^3/uL (0.0-0.8); MONO % 7.5 % (0.0-5.0); NEUTROPHILS # 6.3 10^3/uL (1.8-7.7); NEUTROPHILS % 60.1 % (36.0-66.0); PLATELET COUNT, AUTOMATED 185 10^3/uL (150-450); RED BLOOD COUNT 4.22 10^6/uL (4.30-6.10); WHITE BLOOD COUNT 10.5 10^3/uL (4.0-10.0)
[2018-03-15] MEDS: HEPARIN SOD (PORCINE) 5000 UNITS/ML VIAL SQ SCH ×2 (06:02→15:10)
[2018-03-15] MEDS: SLF 3 ML SYR IV SCH ×2 (06:03→15:10)
[2018-03-15 06:15] LABS: ALBUMIN 2.5 GM/DL (3.2-5.2); ALT/SGPT 33 U/L (12-78); BILIRUBIN,TOTAL 0.3 MG/DL (0.2-1.0); BLOOD UREA NITROGEN 17 MG/DL (7-18); CALCIUM LEVEL 7.7 MG/DL (8.5-10.1); CARBON DIOXIDE LEVEL 25 MEQ/L (21-32); CHLORIDE LEVEL 102 MEQ/L (98-107); CREATININE FOR GFR 0.83 MG/DL (0.70-1.30); GLOMERULAR FILTRATION RATE > 60.0 (>60); GLUCOSE, FASTING 121 MG/DL (70-100); MAGNESIUM LEVEL 1.9 MG/DL (1.8-2.4); SODIUM LEVEL 134 MEQ/L (136-145); TOTAL PROTEIN 5.7 GM/DL (6.4-8.2)
[2018-03-15 08:00] VITALS: BP 130/80
[2018-03-15 08:48] VITALS: BP 130/80
[2018-03-15] MEDS: CARVedilol 12.5 MG TAB PO SCH (08:48)
[2018-03-15] MEDS: PANTOPRAZOLE 40MG TAB (PROTONIX) PO SCH (08:49)
[2018-03-15] MEDS: NICOTINE 21MG/24HR 1 EA TRANSDERMAL TD SCH (08:49)
[2018-03-15] MEDS ORDERED: amLODIPine 5 MG TAB PO SCH (09:00)
--- NOTE | 2018-03-15 09:07 | ECGEPIP ---
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
[2018-03-15 12:00] VITALS: BP 116/80
--- NOTE | 2018-03-15 13:39 | IPNPDOC ---
Text Note Date of Service The patient was seen on 03/15/18. NOTE Subjective: Patient is a 47-year-old male with a PMHx of HTN (non-compliant with medications) who presented to the ER with complaints of shortness of breath. In the emergency room, patient had imaging completed that showed findings suggestive of bronchitis. Patient was admitted to the hospital service for hypertensive urgency. Patient was examined in bed today. Patient denies any new complaints this morning. Denies any difficulty breathing, chest pain, palpitations. Has not experienced any nausea, vomiting, abdominal pain, constipation, diarrhea or discomfort with urination Objective: Vitals (See below) General: Lying in bed, no acute distress, comfortable, AAOx3 HEENT: NC, AT CVS: RRR, +S1S2, no murmurs or rubs Lungs: Air entry fair bilaterally without any evidence of wheezing, rhonchi or rales Abdomen: Abdomen remains soft without any evidence of tenderness or distention Extremities: Lower extremities without any edema, - Calf tenderness Assessment and plan: Possible lymphoma based on imaging - Patient remains asymptomatic - He is unsure of a family history as he was adopted - Possible right axially lymphadenopathy on palpation noted - CT chest 03/13: Axillary, hilar, and mediastinal adenopathy consistent with lymphoma requires followup. Small focal areas of atelectasis involving the right middle lobe and bilateral lower lobes with small posterior pleural reactions - Consulted Surgery (Dr. Pineda); appreciate their input - Patient will go for ultrasound guided biopsy of lymphadenopathy s/p Hypertensive urgency - 2/2 non-compliance with medications - Clinically patient has no new complaints; Negative CP/SOB/Palpitations - Patient blood pressure remains better controlled this morning - ECHO 03/13: Normal EF, no evidence of diastolic dysfunction, elevation in CVP - EKG 03/12: No ischemic changes - c/w Telemetry monitoring - s/p Hydralazine IV; s/p Labetalol - c/w Carvedilol and Amlodipine SOB - possibly 2/2 Bronchitis - Patient reports some cough, non productive, denies shortness of breath - Physical without any adventitious lung sounds - Leukocytosis noted on admission; with lactic acidosis - CXR 03/13: No focal consolidation. Coarsened interstitial markings may reflect bronchitis. - c/w Levaquin (Day #4) Leukocytosis - possibly 2/2 corticosteroids, possibly 2/2 infectious etiology - Continues to touch and down - See above s/p Lactic acidosis - possibly 2/2 above; or possibly 2/2 beta-agonist therapy Nicotine use - c/w Nicotine patch GERD - c/w Protonix DVT prophylaxis - c/w Heparin Disposition: - Awaiting completion of biopsy - Will need outpatient follow-up with Dr. Gayle and establishment of primary care provider Teressa SALAMANCA, I+O Teressa SALAMANCA I+O Laboratory Tests 03/15/18 05:20 Red Blood Count 4.22 L, Mean Corpuscular Volume 96.0, Mean Corpuscular Hemoglobin 31.8, Mean Corpuscular Hemoglobin Concent 33.1, Red Cell Distribution Width 13.2, Neutrophils (%) (Auto) 60.1, Lymphocytes (%) (Auto) 27.8, Monocytes (%) (Auto) 7.5 H, Eosinophils (%) (Auto) 3.3 H, Basophils (%) (Auto) 0.6, Neutrophils # (Auto) 6.3, Lymphocytes # (Auto) 2.9, Monocytes # (Auto) 0.8, Eosinophils # (Auto) 0.3, Basophils # (Auto) 0.1, Calcium Level 7.7 L, Aspartate Amino Transf (AST/SGOT) 35, Alanine Aminotransferase (ALT/SGPT) 33, Alkaline Phosphatase 52, Total Bilirubin 0.3, Total Protein 5.7 L, Albumin 2.5 L Vital Signs Date Time Temp Pulse Resp B/P (MAP) Pulse Ox O2 Delivery O2 Flow Rate FiO2 03/15/18 12:00 96.5 72 18 116/80 (92) 97 Room Air I&O- Last 24 Hours up to 6 AM 03/15/18 06:00 Intake Total 1350 ml Output Total 750 ml Balance 600 ml FREIDA HILL MD Mar 15, 2018 13:39
[2018-03-15] MEDS ORDERED: LIDOCAINE 1% MDV 20ML VIAL As Ordered ONE (14:39)
[2018-03-15] MEDS ORDERED: CARV12.5 PO (15:37)
[2018-03-15] MEDS ORDERED: LEVO750T13 PO (15:37)
[2018-03-15] MEDS ORDERED: AMLO5TAB6 PO (15:37)
--- NOTE | 2018-03-15 15:43 | DS.PDOC ---
Discharge Summary General Date of Admission Mar 13, 2018 at 14:48 Date of Discharge 03/15/2018 Discharge Summary PROCEDURES PERFORMED DURING STAY: 03/15/18 US guided biopsy of lymphadenopathy ADMITTING DIAGNOSES / DISCHARGE DIAGNOSES: Possible lymphoma based on imaging s/p Hypertensive urgency - 2/2 non-compliance with medications SOB - possibly 2/2 Bronchitis Leukocytosis - possibly 2/2 corticosteroids, possibly 2/2 infectious etiology s/p Lactic acidosis - possibly 2/2 above; or possibly 2/2 beta-agonist therapy Nicotine use GERD DVT prophylaxis COMPLICATIONS/CHIEF COMPLAINT: Shortness of breath HISTORY OF PRESENT ILLNESS: Patient is a 47-year-old male with a PMHx of HTN (non-compliant with medications) who presented to the ER with complaints of shortness of breath. In the emergency room, patient had imaging completed that showed findings suggestive of bronchitis. Patient was admitted to the hospital service for hypertensive urgency. HOSPITAL COURSE: Possible lymphoma based on imaging - Patient remains asymptomatic - He is unsure of a family history as he was adopted - Possible right axially lymphadenopathy on palpation noted - CT chest 03/13: Axillary, hilar, and mediastinal adenopathy consistent with lymphoma requires followup. Small focal areas of atelectasis involving the right middle lobe and bilateral lower lobes with small posterior pleural reactions - Consulted Surgery (Dr. Pineda); appreciate their input - Patient has completed biopsy of LN; will have outpatient f/u with Dr. Pineda for pathology results s/p Hypertensive urgency - 2/2 non-compliance with medications - Clinically patient has no new complaints; Negative CP/SOB/Palpitations - BP well controlled - ECHO 03/13: Normal EF, no evidence of diastolic dysfunction, elevation in CVP - EKG 03/12: No ischemic changes - c/w Telemetry monitoring - s/p Hydralazine IV; s/p Labetalol - c/w Carvedilol and Amlodipine - Will help establish primary care for follow SOB - possibly 2/2 Bronchitis - Patient reports some cough, non productive, denies shortness of breath - Physical without any adventitious lung sounds - Leukocytosis noted on admission; with lactic acidosis - CXR 03/13: No focal consolidation. Coarsened interstitial markings may reflect bronchitis. - c/w Levaquin (Day #4) Leukocytosis - possibly 2/2 corticosteroids, possibly 2/2 infectious etiology - Continues to trend down - See above s/p Lactic acidosis - possibly 2/2 above; or possibly 2/2 beta-agonist therapy Nicotine use - c/w Nicotine patch GERD - c/w Protonix DVT prophylaxis - c/w Heparin DISCHARGE MEDICATIONS: Please see below. ALLERGIES: Please see below. PHYSICAL EXAMINATION ON DISCHARGE: Vitals (See below) General: Lying in bed, no acute distress, comfortable, AAOx3 HEENT: NC, AT CVS: RRR, +S1S2, no murmurs or rubs Lungs: Air entry fair bilaterally without any evidence of wheezing, rhonchi or rales Abdomen: Abdomen remains soft without any evidence of tenderness or distention Extremities: Lower extremities without any edema, - Calf tenderness LABORATORY DATA: Please see below. ACTIVITY: [As tolerated]. DIET: 2G Sodium diet DISCHARGE PLAN: Follow up with Dr. Pineda and PCP within 1-2 weeks. Remain compliant with treatment plan and medications Return to the ER if you experience any problems DISPOSITION: Home DISCHARGE CONDITION: [Stable]. TIME SPENT ON DISCHARGE: Greater than [35] minutes. Vital Signs/I&Os Vital Signs Date Time Temp Pulse Resp B/P (MAP) Pulse Ox O2 Delivery O2 Flow Rate FiO2 03/15/18 12:00 96.5 72 18 116/80 (92) 97 Room Air I&O- Last 24 Hours up to 6 AM 03/15/18 06:00 Intake Total 1350 ml Output Total 750 ml Balance 600 ml Laboratory Data Labs 24H Laboratory Tests 2 03/15/18 05:20: Immature Granulocyte % (Auto) 0.7, White Blood Count 10.5H, Red Blood Count 4.22L, Hemoglobin 13.4L, Hematocrit 40.5L, Mean Corpuscular Volume 96.0, Mean Corpuscular Hemoglobin 31.8, Mean Corpuscular Hemoglobin Concent 33.1, Red Cell Distribution Width 13.2, Platelet Count 185, Neutrophils (%) (Auto) 60.1, Lymphocytes (%) (Auto) 27.8, Monocytes (%) (Auto) 7.5H, Eosinophils (%) (Auto) 3.3H, Basophils (%) (Auto) 0.6, Neutrophils # (Auto) 6.3, Lymphocytes # (Auto) 2.9, Monocytes # (Auto) 0.8, Eosinophils # (Auto) 0.3, Basophils # (Auto) 0.1, Nucleated Red Blood Cells % (auto) 0.0, Anion Gap 7L, Glomerular Filtration Rate > 60.0, Blood Urea Nitrogen 17, Creatinine 0.83, Sodium Level 134L, Potassium Level 4.0, Chloride Level 102, Carbon Dioxide Level 25, Calcium Level 7.7L, Aspartate Amino Transf (AST/SGOT) 35, Alanine Aminotransferase (ALT/SGPT) 33, Alkaline Phosphatase 52, Total Bilirubin 0.3, Total Protein 5.7L, Albumin 2.5L, Magnesium Level 1.9, Albumin/Globulin Ratio 0.78L CBC/BMP Laboratory Tests 03/15/18 05:20 Red Blood Count 4.22 L, Mean Corpuscular Volume 96.0, Mean Corpuscular Hemoglobin 31.8, Mean Corpuscular Hemoglobin Concent 33.1, Red Cell Distribution Width 13.2, Neutrophils (%) (Auto) 60.1, Lymphocytes (%) (Auto) 27.8, Monocytes (%) (Auto) 7.5 H, Eosinophils (%) (Auto) 3.3 H, Basophils (%) (Auto) 0.6, Neutrophils # (Auto) 6.3, Lymphocytes # (Auto) 2.9, Monocytes # (Auto) 0.8, Eosinophils # (Auto) 0.3, Basophils # (Auto) 0.1, Calcium Level 7.7 L, Aspartate Amino Transf (AST/SGOT) 35, Alanine Aminotransferase (ALT/SGPT) 33, Alkaline Phosphatase 52, Total Bilirubin 0.3, Total Protein 5.7 L, Albumin 2.5 L Microbiology Microbiology 03/12/18 Blood Culture - Preliminary, Resulted No Growth after 72 hours. All specime... 03/12/18 Blood Culture - Preliminary, Resulted No Growth after 72 hours. All specime... Discharge Medications Scheduled Amlodipine Besylate (Amlodipine Besylate) 5 Mg Tab, 5 MG PO DAILY Carvedilol (Carvedilol) 12.5 Mg Tab, 50 MG PO BID Levofloxacin Hemihydrate (Levofloxacin) 750 Mg Tab, 1 TAB PO DAILY Allergies Coded Allergies: No Known Allergies (Unverified , 03/12/18) FREIDA HILL MD Mar 15, 2018 15:43
[2018-03-15] MEDS ORDERED: VENTAER INH (15:50)
[2018-03-15] MEDS ORDERED: NICO21PAT TD (15:50)
--- NOTE | 2018-03-15 15:54 | REP ---
ULTRASOUND GUIDED BIOPSY OF RIGHT AXILLARY ADENOPATHY: The patient is referred for ultrasound guided biopsy of right axillary adenopathy. Informed consent was obtained from the patient for the procedure. An enlarged, rounded deep right axillary lymph node without a fatty hilum is visualized and targeted for biopsy. Under sterile conditions and after satisfactory administration of local anesthesia, using coaxial technique, and a 17-gauge introducer needle with 18-gauge Temno biopsy gun, eight core biopsy samples were obtained of 18-gauge size. Four biopsy core samples were placed in formalin and four were placed in PMI and sent to pathology for appropriate testing. Needle was removed and hemostasis was obtained with no immediate complications. Electronically Signed by Micah Miranda MD 03/15/2018 05:12 P
--- NOTE | 2018-03-16 11:06 | ECGEPIP ---
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
== END 2018-03-15 17:02 | disposition home or self-care (01) | DRG 305 ==
LOC: M ED 10:18 → M ED INP 13:16 → M PCU 17:13 → OBSVTOIN 03-13 14:48
PROVIDERS: ADMIT Hospitalist; ATTEND Internal Medicine
PROC: 07D53ZX Extraction of Right Axillary Lymphatic, Percutaneous Approach, Diagnostic (ICD-10-PCS; principal; 2018-03-15)
DX: I16.1 Hypertensive emergency (principal); E87.2 Acidosis; C83.34 Diffuse large B-cell lymphoma, lymph nodes of axilla and upper limb; I10 Essential (primary) hypertension; J40 Bronchitis, not specified as acute or chronic; F17.218 Nicotine dependence, cigarettes, with other nicotine-induced disorders; R05 Cough; K21.9 Gastro-esophageal reflux disease without esophagitis; Z91.14 Patient's other noncompliance with medication regimen; Z91.19 Patient's noncompliance with other medical treatment and regimen

== ENCOUNTER → 2018-04-05 | Outpatient (REF) | payer OTHER ==
[~2018-04-05] MED LIST: AMLO5TAB6 PO; CARV12.5 PO; LEVO750T13 PO; NICO21PAT TD; VENTAER INH
[2018-04-05 13:59] LABS: CHOLESTEROL RISK RATIO 3.804 (<5)
[2018-04-05 15:01] LABS: HEMOGLOBIN A1c 6.3 %
== END ==
LOC: M SFHCPLAZ 10:25
PROVIDERS: ATTEND Family Medicine
DX: Z13.220 Encounter for screening for lipoid disorders (principal); Z13.1 Encounter for screening for diabetes mellitus

== ENCOUNTER → 2018-05-23 | Outpatient (CLI) | payer OTHER ==
[~2018-05-23] MED LIST changes: +CARV25TA PO; +GASTROGRAFIN SOLUTION 30ML (Q9963) As Ordered ONE; +ISOVUE-370 76% 100ML VIAL (Q9967) As Ordered ONE
--- NOTE | 2018-05-25 16:35 | REP ---
Clinical: Lymphoma. Technique: Axial contrast enhanced images from the thoracic inlet to the upper abdomen with coronal and sagittal re-formations using 100 ml Isovue 370 intravenous contrast material. Comparison: 03/13/2018. Findings: Axillary, hilar, and mediastinal adenopathy has significantly improved as compared to prior examination mediastinal lymph nodes now measuring up to approximately 16 mm (previously measuring 27 mm). The bilateral lung mcgill are well-aerated, symmetric, and clear. No consolidation, significant nodule or mass lesion is appreciated. No pleural effusion. No pneumothorax. Tracheobronchial tree is patent. The mediastinum demonstrates normal thoracic aorta, pulmonary vasculature and heart/pericardium. Musculoskeletal structures are intact and without focal osseous abnormality. Limited upper abdomen demonstrates diffuse hepatic steatosis without focal hepatic lesion identified. Subtle adenopathy at the celiac axis cannot definitively be excluded. Bilateral adrenal glands are normal. Impression: 1. Considerably improved decreased axillary and mediastinal adenopathy. 2. No new acute mediastinal or pleuroparenchymal process appreciated. 3. Upper abdomen demonstrates hepatic steatosis. Electronically Signed by Eric Valencia MD 05/25/2018 04:27 P
--- NOTE | 2018-05-25 16:43 | REP ---
Clinical: Lymphoma. Technique: Axial contrast enhanced images from the lung bases to the pubic symphysis using oral (per protocol) and 100 ml Isovue 370 intravenous contrast material with delayed images of the abdomen as well as coronal and sagittal re-formations. Comparison: None. Findings: Lung bases are clear. Visualized heart and pericardium normal. Diffuse hepatic steatosis noted without focal hepatic lesion identified. Spleen, pancreas, gallbladder, bilateral adrenal glands and kidneys are normal. The the enteric system including stomach, small and large bowel is unremarkable and without obstruction or acute inflammatory process. Normal terminal ileum and appendix are identified in the right lower quadrant. Few scattered colonic diverticula noted without acute diverticulitis. Pelvis demonstrates partially collapsed normal bladder and age appropriate prostate/seminal vesicles. Lymph nodes at the chapo hepatis and celiac axis measure up to approximately 3.0 x 1.5 cm. Retroperitoneal lymph nodes measure up to approximately 11 mm. Pelvic sidewall adenopathy includes lymph nodes measuring up to 3.2 x 1.8 cm. No ascites. No free air. Abdominal aorta and vasculature without aneurysm or dissection. Surrounding musculoskeletal structures are intact without focal osseous abnormality. Impression: 1. Adenopathy involving the upper abdomen (celiac axis) and pelvic sidewalls. 2. Hepatic steatosis. 3. No ascites or focal inflammatory stranding. Electronically Signed by Eric Valencia MD 05/25/2018 04:35 P
== END ==
LOC: M RAD 12:14
PROVIDERS: ATTEND Internal Medicine Hematology & Oncology
DX: C91.90 Lymphoid leukemia, unspecified not having achieved remission (principal)

== ENCOUNTER 2022-05-26 23:40 | Emergency (ER) | payer OTHER ==
[~2022-05-26] VITALS: Ht 172.7 cm; Wt 99.8 kg
[~2022-05-26 23:40] MED LIST changes: +AMLO1TAB24 PO; -AMLO5TAB6 PO; -GASTROGRAFIN SOLUTION 30ML (Q9963) As Ordered ONE; -ISOVUE-370 76% 100ML VIAL (Q9967) As Ordered ONE; +LEVO1TAB40 PO; -LEVO750T13 PO
[2022-05-27 00:52] LABS: BLOOD UREA NITROGEN 13 MG/DL (9-23); CALCIUM LEVEL 8.2 MG/DL (8.5-10.1); CARBON DIOXIDE LEVEL 26 MMOL/L (20-31); CHLORIDE LEVEL 100 MMOL/L (98-107); CREATININE FOR GFR 1.13 MG/DL (0.70-1.30); GLOMERULAR FILTRATION RATE > 60.0 (>60); GLUCOSE, FASTING 91 MG/DL (60-100); POTASSIUM SERUM 4.3 MMOL/L (3.5-5.1); SODIUM LEVEL 134 MMOL/L (136-145)
[2022-05-27 00:56] LABS: HEMATOCRIT 48.3 % (42.0-52.0); HEMOGLOBIN 15.6 g/dl (13.5-17.5); MEAN CORPUSCULAR HEMOGLOBIN 32.4 pg (27.0-33.0); MEAN CORPUSCULAR HGB CONC 32.3 g/dl (32.0-36.5); MEAN CORPUSCULAR VOLUME 100.4 fl (80.0-96.0); PLATELET COUNT, AUTOMATED 231 10^3/uL (150-450); RED BLOOD COUNT 4.81 10^6/uL (4.30-6.10); WHITE BLOOD COUNT 18.2 10^3/uL (4.0-10.0)
[2022-05-27 01:53] LABS: ATYPICAL LYMPH 25 % (0-5); EOSINOPHILS 1 % (0-3); LYMPHOCYTES 21 % (16-44); MONOCYTES 3 % (0-5); NEUTROPHILS 50 % (28-66); PLATELET ESTIMATE NORMAL (NORMAL)
[2022-05-27 01:54] LABS: GIANT PLATELETS 1+
[2022-05-27 02:11] LABS: ETHYL ALCOHOL (ETHANOL) 0.255 % (0.000-0.010)
[2022-05-27 04:30] VITALS: BP 115/76
== END 2022-05-27 04:35 | disposition home or self-care (01) ==
LOC: M ED 23:40
DX: R55 Syncope and collapse (principal); F10.129 Alcohol abuse with intoxication, unspecified; D72.829 Elevated white blood cell count, unspecified; Z85.6 Personal history of leukemia; I48.91 Unspecified atrial fibrillation; F17.200 Nicotine dependence, unspecified, uncomplicated; Z79.01 Long term (current) use of anticoagulants; Z79.899 Other long term (current) drug therapy

== ENCOUNTER → 2023-02-15 | Outpatient (CLI) | payer BC ==
[2023-02-15 15:54] LABS: BASO # 0.1 10^3/uL (0.0-0.2); BASO % 0.7 % (0.0-1.0); EOS # 0.2 10^3/uL (0.0-0.5); EOS % 2.4 % (0.0-3.0); HEMATOCRIT 46.8 % (42.0-52.0); LYMPH # 2.6 10^3/uL (1.5-5.0); LYMPH % 26.4 % (24.0-44.0); MEAN CORPUSCULAR HEMOGLOBIN 34.2 pg (27.0-33.0); MEAN CORPUSCULAR HGB CONC 34.2 g/dl (32.0-36.5); MONO # 0.8 10^3/uL (0.0-0.8); MONO % 7.6 % (2.0-8.0); NEUTROPHILS # 6.1 10^3/uL (1.5-8.5); NEUTROPHILS % 62.6 % (36.0-66.0); PLATELET COUNT, AUTOMATED 149 10^3/uL (150-450); RED BLOOD COUNT 4.68 10^6/uL (4.30-6.10); WHITE BLOOD COUNT 9.8 10^3/uL (4.0-10.0)
[2023-02-15 16:23] LABS: BLOOD UREA NITROGEN 15 MG/DL (9-23); CALCIUM LEVEL 9.1 MG/DL (8.5-10.1); CARBON DIOXIDE LEVEL 31 MMOL/L (20-31); CHLORIDE LEVEL 99 MMOL/L (98-107); CREATININE FOR GFR 0.98 MG/DL (0.70-1.30); GLOMERULAR FILTRATION RATE > 60.0 (>56); GLUCOSE, FASTING 140 MG/DL (60-100); SODIUM LEVEL 139 MMOL/L (136-145)
== END ==
LOC: M LAB 15:25
PROVIDERS: ATTEND Internal Medicine Cardiovascular Disease
DX: R73.03 Prediabetes (principal); I48.91 Unspecified atrial fibrillation; I50.20 Unspecified systolic (congestive) heart failure

== ENCOUNTER 2023-09-21 15:55 | Inpatient (IN) | payer BC, MEDICAID, SELFPAY ==
[~2023-09-21] VITALS: Ht 172.7 cm; Wt 107.5 kg
[2023-09-21] MEDS ORDERED: ELIQ5TAB (16:08)
[2023-09-21] MEDS ORDERED: TREL1AER (16:08)
[2023-09-21] MEDS ORDERED: BUPR15TASR (16:08)
[2023-09-21] MEDS ORDERED: METO200T15 PO ×2 (16:08→18:15)
[2023-09-21] MEDS ORDERED: LISI40TA4 (16:08)
[2023-09-21] MEDS ORDERED: BUSP10TA (16:08)
[2023-09-21] MEDS ORDERED: TOPR100T PO ×2 (16:08→18:15)
[2023-09-21 16:39] LABS: VENOUS BASE EXCESS 0.6 (-2.0-2.0); VENOUS HCO3 25.2 MMOL/L (23.0-27.0); VENOUS O2 SATURATION 57.5 % (60.0-80.0); VENOUS PARTIAL PRESSURE CO2 40.5 mmHg (38.0-50.0); VENOUS PARTIAL PRESSURE O2 32.9 mmHg (30.0-50.0); VENOUS PH 7.412 UNITS (7.330-7.430); VENOUS STANDARD HCO3 23.9 MMOL/L; VENOUS TOTAL CO2 26.5 MMOL/L (24.0-28.0)
[2023-09-21 16:41] LABS: BASO # 0.1 10^3/uL (0.0-0.2); BASO % 0.7 % (0.0-1.0); EOS # 0.3 10^3/uL (0.0-0.5); EOS % 2.7 % (0.0-3.0); HEMATOCRIT 47.1 % (42.0-52.0); HEMOGLOBIN 15.3 g/dl (13.5-17.5); LYMPH # 2.2 10^3/uL (1.5-5.0); LYMPH % 19.4 % (24.0-44.0); MEAN CORPUSCULAR HEMOGLOBIN 31.6 pg (27.0-33.0); MEAN CORPUSCULAR HGB CONC 32.5 g/dl (32.0-36.5); MEAN CORPUSCULAR VOLUME 97.3 fl (80.0-96.0); MONO # 0.7 10^3/uL (0.0-0.8); NEUTROPHILS % 70.8 % (36.0-66.0); PLATELET COUNT, AUTOMATED 198 10^3/uL (150-450); RED BLOOD COUNT 4.84 10^6/uL (4.30-6.10); WHITE BLOOD COUNT 11.3 10^3/uL (4.0-10.0)
[2023-09-21] MEDS: METOPROLOL 5 MG/5 ML VIAL IV STA (16:57)
[2023-09-21 17:05] LABS: CK-MB VALUE MASS 4.5 NG/ML (<3.6)
[2023-09-21 17:08] LABS: ALBUMIN 3.5 G/DL (3.2-5.2); ALKALINE PHOSPHATASE 100 U/L (46-116); ALT/SGPT 41 U/L (7.0-40); AST/SGOT 47 U/L (<34); BILIRUBIN,DIRECT 0.8 MG/DL (<0.4); BILIRUBIN,TOTAL 1.9 MG/DL (0.3-1.2); BLOOD UREA NITROGEN 13 MG/DL (9-23); CALCIUM LEVEL 9.3 MG/DL (8.5-10.1); CARBON DIOXIDE LEVEL 27 MMOL/L (20-31); CHLORIDE LEVEL 104 MMOL/L (98-107); CPK CREATINE PHOSPHOKINASE 140 U/L (46-171); CREATININE FOR GFR 0.93 MG/DL (0.70-1.30); GLOMERULAR FILTRATION RATE > 60.0 (>56); GLUCOSE, FASTING 159 MG/DL (60-100); MB/CK RELATIVE INDEX 3.21 (< OR =4); POTASSIUM SERUM 4.4 MMOL/L (3.5-5.1); SODIUM LEVEL 137 MMOL/L (136-145); TOTAL PROTEIN 6.9 G/DL (5.7-8.2)
[2023-09-21 17:09] LABS: THYROXINE (T4) 11.3 UG/DL (4.5-10.9)
[2023-09-21 17:10] LABS: THYROID STIMULATING HORMONE 3.976 uIU/ML (0.55-4.78)
[2023-09-21] MEDS ORDERED: ELIQ5TAB PO (18:15)
[2023-09-21] MEDS ORDERED: LISI40TA4 PO (18:15)
[2023-09-21] MEDS: LORazepam 2 MG/ML 1ML VIAL IV STA (19:28)
[2023-09-21] MEDS: APIXABAN 5 MG TAB (ELIQUIS) PO ONE (21:37)
[2023-09-21] MEDS: METOPROLOL SUCC (TopROL XL) 100MG *XL* TAB PO ONE (21:38)
[2023-09-21] MEDS: METOPROLOL 5 MG/5 ML VIAL IV PRN (21:39)
[2023-09-21] MEDS ORDERED: METOPROLOL 5 MG/5 ML VIAL IV PRN (22:50)
[2023-09-22] VITALS (10 sets, daily range): BP systolic 101–146; BP diastolic 60–97; TEMP 96.3–97; O2SAT 88–95
[2023-09-22] MEDS ORDERED: LORazepam 2 MG TAB PO PRN (01:45)
[2023-09-22] MEDS ORDERED: MOM 30ML SUSPENSION UDC PO PRN (01:45)
[2023-09-22] MEDS ORDERED: TREL1AER INH (02:21)
[2023-09-22] MEDS ORDERED: LISI40TA4 PO (02:21)
[2023-09-22] MEDS ORDERED: METO1TAB33 PO (02:21)
[2023-09-22] MEDS ORDERED: BUSP10TA PO ×2 (02:21)
[2023-09-22] MEDS ORDERED: JARD1TAB PO (02:21)
[2023-09-22] MEDS ORDERED: MULT-40 PO (02:21)
[2023-09-22] MEDS ORDERED: ALBU8.5H INH (02:21)
[2023-09-22] MEDS ORDERED: BUPR1TAB53 PO (02:21)
[2023-09-22] MEDS: DOXYCYCLINE HYCLATE 100 MG in D5W MINI-BAG PLUS 100 ML IV SCH (02:23)
[2023-09-22] MEDS: dilTIAZem 25MG/5ML VIAL IV STA (02:24)
[2023-09-22] MEDS ORDERED: MED REC IN PROGRESS XX SCH (02:25)
[2023-09-22 03:49] LABS: HEMATOCRIT 44.2 % (42.0-52.0); HEMOGLOBIN 14.4 g/dl (13.5-17.5); MEAN CORPUSCULAR HEMOGLOBIN 31.9 pg (27.0-33.0); MEAN CORPUSCULAR HGB CONC 32.6 g/dl (32.0-36.5); MEAN CORPUSCULAR VOLUME 97.8 fl (80.0-96.0); PLATELET COUNT, AUTOMATED 209 10^3/uL (150-450); RED BLOOD COUNT 4.52 10^6/uL (4.30-6.10); WHITE BLOOD COUNT 12.2 10^3/uL (4.0-10.0)
[2023-09-22] MEDS ORDERED: ELIQ5TAB PO (04:15)
[2023-09-22] MEDS ORDERED: ISOVUE-370 76% 100ML VIAL As Ordered ONE (04:16)
[2023-09-22 04:19] LABS: ALBUMIN 3.1 G/DL (3.2-5.2); ALKALINE PHOSPHATASE 82 U/L (46-116); ALT/SGPT 36 U/L (7.0-40); AST/SGOT 36 U/L (<34); BILIRUBIN,TOTAL 2.1 MG/DL (0.3-1.2); BLOOD UREA NITROGEN 15 MG/DL (9-23); CALCIUM LEVEL 8.8 MG/DL (8.5-10.1); CARBON DIOXIDE LEVEL 27 MMOL/L (20-31); CHLORIDE LEVEL 106 MMOL/L (98-107); CREATININE FOR GFR 0.92 MG/DL (0.70-1.30); GLOMERULAR FILTRATION RATE > 60.0 (>56); GLUCOSE, FASTING 134 MG/DL (60-100); POTASSIUM SERUM 4.8 MMOL/L (3.5-5.1); SODIUM LEVEL 138 MMOL/L (136-145); TOTAL PROTEIN 6.1 G/DL (5.7-8.2)
[2023-09-22] MEDS ORDERED: METOPROLOL TART 25 MG TABLET PO SCH (06:00)
[2023-09-22] MEDS ORDERED: APIXABAN 5 MG TAB (ELIQUIS) PO SCH (09:00)
[2023-09-22] MEDS ORDERED: METOPROLOL SUCC (TopROL XL) 100MG *XL* TAB PO SCH ×2 (09:00→21:00)
[2023-09-22] MEDS: lisinopriL 40MG TAB PO SCH (09:32)
[2023-09-22] MEDS: FUROSEMIDE 40MG/4ML VIAL IV SCH (09:33)
[2023-09-22] MEDS: FOLIC ACID 1MG TAB PO SCH (09:33)
[2023-09-22] MEDS: THIAMINE 100 MG TAB PO SCH (09:33)
[2023-09-22] MEDS: MULTIVITAMINS/MINERALS THERAP 1 TAB PO SCH (09:33)
[2023-09-22] MEDS ORDERED: LEVALBUTEROL HFA 45MCG/ACT 15GM INHALER INH PRN (09:35)
[2023-09-22] MEDS: SYMBICORT 160/4.5MCG INHALER 6GM INH SCH (09:47)
[2023-09-22] MEDS: TIOTROPIUM INHALER/CAPSULE (SPIRIVA) INH SCH (09:47)
[2023-09-22 10:16] LABS: MAGNESIUM LEVEL 1.9 MG/DL (1.8-2.4)
[2023-09-22 10:20] LABS: FREE T4 1.21 NG/DL (0.89-1.76)
[2023-09-22 10:24] LABS: PROCALCITONIN 0.14 ng/ml
[2023-09-22] MEDS: busPIRone 10 MG TAB PO SCH (10:27)
[2023-09-22] MEDS: DOXYCYCLINE HYCLATE 100MG TABLET PO SCH (10:27)
[2023-09-22] MEDS: buPROPion **SR TABLET** (ZYBAN) 150MG PO SCH (10:27)
[2023-09-22] MEDS: INSULIN LISPRO (NovoLOG) PER UNIT SC SCH ×2 (12:00→20:05)
[2023-09-22] MEDS: METOPROLOL TART 25 MG TABLET PO SCH (12:07)
[2023-09-22] MEDS ORDERED: GLUCAGON INJ 1MG VIAL SC PRN (13:00)
[2023-09-22] MEDS ORDERED: GLUCOSE 4 GM CHEW PO PRN (13:00)
[2023-09-22] MEDS ORDERED: DEXTROSE 50% 50ML SYRINGE IV PRN (13:00)
[2023-09-22 13:53] LABS: HEPATITIS B SURFACE ANTIGEN NEGATIVE (NEGATIVE)
[2023-09-22 13:54] LABS: HEMOGLOBIN A1c 6.5 % (4.0-6.0)
[2023-09-22 14:14] LABS: HEPATITIS B CORE ANTIBODY IGM NEGATIVE (NEGATIVE); HEPATITIS C VIRUS ABY INDEX < 0.02 INDEX (<0.8)
[2023-09-22] MEDS: DIGOXIN INJ 0.5 MG/2 ML AMP IV STA (15:32)
[2023-09-22] MEDS: ENOXAPARIN 40MG/0.4ML SYRINGE (J1650 PER 10MG) SC ONE (15:33)
[2023-09-22] MEDS: ACETAMINOPHEN TAB 650MG DOSE (2X325MG) PO PRN (16:33)
[2023-09-22] MEDS: SPIRONOLACTONE 12.5MG PER 1/2 TABLET PO SCH (21:14)
[2023-09-23] VITALS (9 sets, daily range): BP systolic 107–164; BP diastolic 65–96; TEMP 96.5–97.1; O2SAT 93–99
[2023-09-23 05:41] LABS: INR 1.36; PROTHROMBIN TIME 16.3 SECONDS (12.5-14.5)
[2023-09-23 07:09] LABS: BASO # 0.1 10^3/uL (0.0-0.2); BASO % 0.7 % (0.0-1.0); EOS # 0.3 10^3/uL (0.0-0.5); EOS % 2.2 % (0.0-3.0); HEMOGLOBIN 14.4 g/dl (13.5-17.5); LYMPH # 2.7 10^3/uL (1.5-5.0); LYMPH % 21.4 % (24.0-44.0); MEAN CORPUSCULAR HEMOGLOBIN 31.9 pg (27.0-33.0); MEAN CORPUSCULAR HGB CONC 32.7 g/dl (32.0-36.5); MEAN CORPUSCULAR VOLUME 97.6 fl (80.0-96.0); MONO # 0.8 10^3/uL (0.0-0.8); NEUTROPHILS # 8.8 10^3/uL (1.5-8.5); NEUTROPHILS % 69.2 % (36.0-66.0); PLATELET COUNT, AUTOMATED 204 10^3/uL (150-450); RED BLOOD COUNT 4.51 10^6/uL (4.30-6.10); WHITE BLOOD COUNT 12.8 10^3/uL (4.0-10.0)
[2023-09-23 07:38] LABS: BLOOD UREA NITROGEN 19 MG/DL (9-23); CALCIUM LEVEL 8.7 MG/DL (8.5-10.1); CARBON DIOXIDE LEVEL 29 MMOL/L (20-31); CHLORIDE LEVEL 104 MMOL/L (98-107); CREATININE FOR GFR 0.91 MG/DL (0.70-1.30); GLOMERULAR FILTRATION RATE > 60.0 (>56); GLUCOSE, FASTING 112 MG/DL (60-100); MAGNESIUM LEVEL 1.9 MG/DL (1.8-2.4); POTASSIUM SERUM 4.3 MMOL/L (3.5-5.1); SODIUM LEVEL 138 MMOL/L (136-145)
[2023-09-23] MEDS: APIXABAN 5 MG TAB (ELIQUIS) PO SCH (08:12)
[2023-09-23] MEDS: METOPROLOL TART 25 MG TABLET PO ONE (08:14)
[2023-09-23] MEDS: DAPAGLIFLOZIN PROPANEDIOL 10MG TABLET (FARXIGA) PO SCH (08:14)
[2023-09-23] MEDS: METOPROLOL TART 50 MG TAB PO SCH (12:27)
[2023-09-23] MEDS ORDERED: ELIQ5TAB PO (16:22)
[2023-09-24] VITALS (10 sets, daily range): BP systolic 95–124; BP diastolic 65–92; TEMP 96.5–97.8; O2SAT 93–100
[2023-09-24 04:33] LABS: BASO # 0.1 10^3/uL (0.0-0.2); BASO % 0.7 % (0.0-1.0); EOS # 0.3 10^3/uL (0.0-0.5); EOS % 2.3 % (0.0-3.0); HEMATOCRIT 43.1 % (42.0-52.0); LYMPH # 3.2 10^3/uL (1.5-5.0); LYMPH % 24.5 % (24.0-44.0); MEAN CORPUSCULAR HEMOGLOBIN 31.5 pg (27.0-33.0); MEAN CORPUSCULAR HGB CONC 32.5 g/dl (32.0-36.5); MEAN CORPUSCULAR VOLUME 96.9 fl (80.0-96.0); MONO # 0.9 10^3/uL (0.0-0.8); MONO % 6.9 % (2.0-8.0); NEUTROPHILS # 8.4 10^3/uL (1.5-8.5); NEUTROPHILS % 65.3 % (36.0-66.0); PLATELET COUNT, AUTOMATED 202 10^3/uL (150-450); RED BLOOD COUNT 4.45 10^6/uL (4.30-6.10); WHITE BLOOD COUNT 12.9 10^3/uL (4.0-10.0)
[2023-09-24 04:58] LABS: BLOOD UREA NITROGEN 21 MG/DL (9-23); CALCIUM LEVEL 8.5 MG/DL (8.5-10.1); CARBON DIOXIDE LEVEL 29 MMOL/L (20-31); CHLORIDE LEVEL 101 MMOL/L (98-107); CREATININE FOR GFR 0.95 MG/DL (0.70-1.30); GLOMERULAR FILTRATION RATE > 60.0 (>56); GLUCOSE, FASTING 118 MG/DL (60-100); MAGNESIUM LEVEL 1.8 MG/DL (1.8-2.4); SODIUM LEVEL 136 MMOL/L (136-145)
[2023-09-24] MEDS ORDERED: ENTR1TAB PO (09:18)
[2023-09-24] MEDS ORDERED: METO1TAB33 PO (09:18)
[2023-09-24] MEDS ORDERED: ALDA25TA2 PO (09:18)
[2023-09-24] MEDS ORDERED: JARD1TAB PO (09:18)
[2023-09-24] MEDS ORDERED: TREL1AER INH (09:18)
[2023-09-24] MEDS ORDERED: METO200T15 PO (09:18)
[2023-09-24] MEDS ORDERED: FURO20TA2 PO (09:18)
[2023-09-24] MEDS: METOPROLOL SUCC (TopROL XL) 100MG *XL* TAB PO SCH ×2 (09:49→21:00)
[2023-09-24] MEDS: ENTRESTO 24-26MG TABLET (SACUBITRIL/VALSARTAN) PO SCH (21:00)
[2023-09-25 03:19] VITALS: BP 133/90; TEMP 96.8; O2SAT 93
[2023-09-25 04:18] LABS: BASO # 0.1 10^3/uL (0.0-0.2); EOS # 0.3 10^3/uL (0.0-0.5); EOS % 2.3 % (0.0-3.0); HEMATOCRIT 46.8 % (42.0-52.0); HEMOGLOBIN 15.1 g/dl (13.5-17.5); LYMPH # 3.3 10^3/uL (1.5-5.0); LYMPH % 25.3 % (24.0-44.0); MEAN CORPUSCULAR HGB CONC 32.3 g/dl (32.0-36.5); MEAN CORPUSCULAR VOLUME 96.1 fl (80.0-96.0); MONO # 0.9 10^3/uL (0.0-0.8); MONO % 6.9 % (2.0-8.0); NEUTROPHILS # 8.3 10^3/uL (1.5-8.5); PLATELET COUNT, AUTOMATED 217 10^3/uL (150-450); RED BLOOD COUNT 4.87 10^6/uL (4.30-6.10)
[2023-09-25 04:47] LABS: BLOOD UREA NITROGEN 22 MG/DL (9-23); CARBON DIOXIDE LEVEL 31 MMOL/L (20-31); CHLORIDE LEVEL 101 MMOL/L (98-107); CREATININE FOR GFR 0.99 MG/DL (0.70-1.30); GLOMERULAR FILTRATION RATE > 60.0 (>56); GLUCOSE, FASTING 109 MG/DL (60-100); MAGNESIUM LEVEL 1.8 MG/DL (1.8-2.4); POTASSIUM SERUM 3.9 MMOL/L (3.5-5.1); SODIUM LEVEL 138 MMOL/L (136-145)
[2023-09-25 07:30] VITALS: BP 112/80; O2SAT 96
[2023-09-25 08:45] VITALS: BP 102/64
[2023-09-25 08:48] VITALS: BP 102/64
[2023-09-25] MEDS ORDERED: POTA-151 PO (10:13)
[2023-09-25] MEDS ORDERED: FURO40TA2 PO (10:13)
[2023-09-25] MEDS ORDERED: MAGN400T2 PO (10:13)
[2023-09-25] MEDS ORDERED: DOXY100C3 PO (10:14)
[2023-09-25] MEDS ORDERED: METO25TA PO (10:17)
[2023-09-25 15:52] LABS: LYME TOTAL ANTIBODY CIA <= 0.90 Index (<=0.90)
== END 2023-09-25 11:14 | disposition home health service (06) | DRG 201 ==
LOC: M ED 15:55 → M ED INP 09-22 01:43 → M PCU 09-22 03:00
PROVIDERS: ADMIT Family Medicine; ATTEND Internal Medicine
DX: I48.11 Longstanding persistent atrial fibrillation (principal); I50.23 Acute on chronic systolic (congestive) heart failure; I27.20 Pulmonary hypertension, unspecified; C91.10 Chronic lymphocytic leukemia of B-cell type not having achieved remission; I11.0 Hypertensive heart disease with heart failure; K70.30 Alcoholic cirrhosis of liver without ascites; J44.9 Chronic obstructive pulmonary disease, unspecified; E11.9 Type 2 diabetes mellitus without complications; F39 Unspecified mood [affective] disorder; Z91.148 Patient's other noncompliance with medication regimen for other reason; Z79.899 Other long term (current) drug therapy; Z87.891 Personal history of nicotine dependence; E66.9 Obesity, unspecified; Z68.37 Body mass index [BMI] 37.0-37.9, adult; J98.11 Atelectasis; I89.0 Lymphedema, not elsewhere classified

== ENCOUNTER → 2023-10-06 | Outpatient (CLI) | payer MEDICAID ==
[~2023-10-06] MED LIST changes: +ALBU8.5H INH; +ALDA25TA2 PO; +BUPR15TASR; +BUPR1TAB53 PO; +BUSP10TA; +BUSP10TA PO; +DOXY100C3 PO; +ELIQ5TAB; +ELIQ5TAB PO; +ENTR1TAB PO; +FURO20TA2 PO; +FURO40TA2 PO; +JARD1TAB PO; +LISI40TA4; +LISI40TA4 PO; +MAGN400T2 PO; +METO1TAB33 PO; +METO200T15 PO; +METO25TA PO; +MULT-40 PO; +POTA-151 PO; +TOPR100T PO; +TREL1AER; +TREL1AER INH
[2023-10-06 14:54] LABS: ALBUMIN 3.2 G/DL (3.2-5.2); ALKALINE PHOSPHATASE 82 U/L (46-116); ALT/SGPT 37 U/L (7.0-40); AST/SGOT 32 U/L (<34); BLOOD UREA NITROGEN 16 MG/DL (9-23); CALCIUM LEVEL 9.3 MG/DL (8.5-10.1); CARBON DIOXIDE LEVEL 29 MMOL/L (20-31); CHLORIDE LEVEL 103 MMOL/L (98-107); CREATININE FOR GFR 1.03 MG/DL (0.70-1.30); GLOMERULAR FILTRATION RATE > 60.0 (>56); GLUCOSE, FASTING 149 MG/DL (60-100); SODIUM LEVEL 136 MMOL/L (136-145); TOTAL PROTEIN 6.3 G/DL (5.7-8.2)
== END ==
LOC: M LAB 13:43
PROVIDERS: ATTEND Internal Medicine Cardiovascular Disease
DX: I50.20 Unspecified systolic (congestive) heart failure (principal)

== ENCOUNTER → 2024-01-03 | Outpatient (CLI) | payer MEDICAID, OTHER ==
[2024-01-03 12:54] LABS: HEMATOCRIT 53.8 % (42.0-52.0); HEMOGLOBIN 17.7 g/dl (13.5-17.5); MEAN CORPUSCULAR HEMOGLOBIN 30.2 pg (27.0-33.0); MEAN CORPUSCULAR HGB CONC 32.9 g/dl (32.0-36.5); MEAN CORPUSCULAR VOLUME 91.8 fl (80.0-96.0); PLATELET COUNT, AUTOMATED 195 10^3/uL (150-450); RED BLOOD COUNT 5.86 10^6/uL (4.30-6.10); WHITE BLOOD COUNT 11.3 10^3/uL (4.0-10.0)
[2024-01-03 13:13] LABS: ALBUMIN 3.7 G/DL (3.2-5.2); ALKALINE PHOSPHATASE 94 U/L (46-116); ALT/SGPT 17 U/L (7.0-40); AST/SGOT 16 U/L (<34); BILIRUBIN,TOTAL 1.6 MG/DL (0.3-1.2); BLOOD UREA NITROGEN 17 MG/DL (9-23); CALCIUM LEVEL 9.7 MG/DL (8.5-10.1); CARBON DIOXIDE LEVEL 30 MMOL/L (20-31); CHLORIDE LEVEL 102 MMOL/L (98-107); CHOLESTEROL LEVEL 224 MG/DL (<200); CHOLESTEROL RISK RATIO 5.61 (<5); CREATININE FOR GFR 1.06 MG/DL (0.70-1.30); GLOMERULAR FILTRATION RATE > 60.0 (>56); GLUCOSE, FASTING 151 MG/DL (60-100); HDL CHOLESTEROL 39.9 MG/DL (>40); LDL CHOLESTEROL 159.1 MG/DL (<100); MAGNESIUM LEVEL 1.8 MG/DL (1.8-2.4); NON-HDL-C 184.1 MG/DL; SODIUM LEVEL 133 MMOL/L (136-145); TOTAL PROTEIN 7.5 G/DL (5.7-8.2); TRIGLYCERIDES LEVEL 125 MG/DL (<150)
[2024-01-04 18:23] LABS: PSA FREE 0.1 ng/mL; PSA TOTAL 0.3 ng/mL (< OR = 4.0)
== END ==
LOC: M LAB 11:57
PROVIDERS: ATTEND Nurse Practitioner Adult Health
DX: I10 Essential (primary) hypertension (principal); E78.5 Hyperlipidemia, unspecified; E11.65 Type 2 diabetes mellitus with hyperglycemia; I48.91 Unspecified atrial fibrillation; E66.9 Obesity, unspecified; E83.42 Hypomagnesemia; Z12.5 Encounter for screening for malignant neoplasm of prostate